=== PATIENT | male | born 1945 | race Caucasian/White ===

== ENCOUNTER 2017-11-20 23:14 | Observation (INO) | payer OTHER ==
[~2017-11-20] VITALS: Ht 177.8 cm; Wt 95.6 kg
[~2017-11-20 23:14] MED LIST: ATORVASTATIN CA20 MG PO; DULCOLAX5 MG PO; LISINOPRIL-HCT1 EACH PO; LOMOTIL TABLET1 EACH PO; LUPRON DEPOT45 MG IM; NAPROSYN375 MG PO; PRILOSEC20 MG PO
[2017-11-20 23:48] LABS: HEMATOCRIT 41.7 % (38.0-50.0); HEMOGLOBIN 14.4 G/DL (12.5-16.6); MCHC 34.5 G/DL (30.0-36.0); MCV 83.9 FL (86-99); PLATELET COUNT 238 K/uL (156-360); RBC DIS.WIDTH-CV 12.6 % (11.8-14.6); RBC DIS.WIDTH-SD 38.3 % (39-53); RED BLOOD COUNT 4.97 M/uL (4.00-5.50); WHITE BLOOD COUNT 10.1 K/uL (4.1-10.2)
[2017-11-21 00:11] LABS: TROP-I INTERPRETATION NEGATIVE; TROPONIN-I < 0.01 ng/mL (0.0-0.30)
[2017-11-21 00:24] LABS: CHLORIDE 99 mEq/L (99-109); POTASSIUM 3.7 mEq/L (3.7-5.4); SODIUM 135 mEq/L (136-147)
[2017-11-21 00:25] LABS: GLUCOSE 203 mg/dL (70-99)
[2017-11-21 00:29] LABS: CREATININE 1.1 mg/dL (0.6-1.3); GFR ESTIMATE (CALCULATED) > 59 mL/min/ (58.99-99999)
[2017-11-21 00:30] LABS: UREA NITROGEN (BUN) 17 mg/dL (9-23)
[2017-11-21] MEDS ORDERED: VITAMIN D32000 UNI1 PO (04:15)
[2017-11-21] MEDS ORDERED: GABAPENTIN100 MG PO (04:15)
[2017-11-21 05:32] VITALS: BP 147/72
[2017-11-21 07:02] LABS: TROP-I INTERPRETATION NEGATIVE; TROPONIN-I 0.15 ng/mL (0.0-0.30)
[2017-11-21 07:07] LABS: HDL CHOLESTEROL 33 MG/DL (Desirable>=40); LDL CHOLESTEROL 138 mg/dL (Desirable<100); NON-HDL CHOLESTEROL 169 mg/dL (Desirable<160); TOTAL CHOLESTEROL 202 mg/dL (Desirable<200); TRIGLYCERIDES 154 MG/DL (Normal: <150)
[2017-11-21 07:47] VITALS: BP 133/74
[2017-11-21 09:34] LABS: HEMOGLOBIN A1c (GLYCOHEMOGLOB) 6.9 % (Below 5.7)
[2017-11-21 13:20] LABS: TROP-I INTERPRETATION NEGATIVE
[2017-11-21 13:41] VITALS: BP 121/74
[2017-11-21 16:04] VITALS: BP 125/75
[2017-11-21 19:57] VITALS: BP 130/85
[2017-11-21 23:19] VITALS: BP 137/69
[2017-11-22 03:25] VITALS: BP 120/67
[2017-11-22 07:29] VITALS: BP 106/69
[2017-11-22 09:06] LABS: HEMATOCRIT 44.7 % (38.0-50.0); HEMOGLOBIN 14.5 G/DL (12.5-16.6); MCH 27.4 PG (29.0-34.0); MCHC 32.4 G/DL (30.0-36.0); MCV 84.3 FL (86-99); PLATELET COUNT 276 K/uL (156-360); RBC DIS.WIDTH-CV 12.7 % (11.8-14.6); RBC DIS.WIDTH-SD 38.9 % (39-53); WHITE BLOOD COUNT 9.8 K/uL (4.1-10.2)
[2017-11-22 09:28] LABS: CHLORIDE 97 MEQ/L (99-109); GFR ESTIMATE (CALCULATED) > 59 mL/min/ (58.99-99999); GLUCOSE 124 mg/dL (70-99); POTASSIUM 4.3 MEQ/L (3.7-5.4); SODIUM 136 MEQ/L (136-147); UREA NITROGEN (BUN) 17 mg/dL (9-23)
[2017-11-22] MEDS ORDERED: METOPROLOL SUCC25 MG PO (09:52)
[2017-11-22] MEDS ORDERED: ELIQUIS5 MG PO (09:53)
[2017-11-22] MEDS ORDERED: ASPIR 8181 M1 PO (09:53)
[2017-11-22] MEDS ORDERED: ONGLYZA2.5 MG PO (09:54)
[2017-11-22] MEDS ORDERED: ONGLYZA5 MG PO (09:54)
== END 2017-11-22 14:33 | disposition home or self-care (01) ==
LOC: EME 23:14 → EDOF 11-21 03:39 → ENRESERV 11-21 03:41 → 5SOUTH 11-21 05:17
PROVIDERS: Emergency Medicine; Hospitalist; Physician Assistant
PROC: B246ZZZ Ultrasonography of Right and Left Heart (ICD-10-PCS; principal; 2017-11-22)
DX: G50.0 Trigeminal neuralgia (principal); I10 Essential (primary) hypertension; E78.5 Hyperlipidemia, unspecified; E11.9 Type 2 diabetes mellitus without complications; J45.909 Unspecified asthma, uncomplicated; I65.23 Occlusion and stenosis of bilateral carotid arteries; Z85.46 Personal history of malignant neoplasm of prostate; Z86.73 Personal history of transient ischemic attack (TIA), and cerebral infarction without residual deficits; I48.91 Unspecified atrial fibrillation; I70.0 Atherosclerosis of aorta; I25.10 Atherosclerotic heart disease of native coronary artery without angina pectoris; I25.2 Old myocardial infarction; G89.29 Other chronic pain; K21.9 Gastro-esophageal reflux disease without esophagitis; Z87.891 Personal history of nicotine dependence
CPT/HCPCS: 70450; 70551; 71046; 80048; 80061; 83036; 84484; 85027; 85610; 85730; 93005; 93306; 93880; 99281; 99285; G0378; J1650

== ENCOUNTER 2017-11-29 12:02 | Observation (INO) | payer OTHER ==
[~2017-11-29] VITALS: Ht 177.8 cm; Wt 96.4 kg
[~2017-11-29 12:02] MED LIST changes: +ASPIR 8181 M1 PO; -ATORVASTATIN CA20 MG PO; +ATORVASTATIN CA80 MG PO; +ELIQUIS5 MG PO; +GABAPENTIN100 MG PO; +METOPROLOL SUCC25 MG PO; +ONGLYZA2.5 MG PO; +ONGLYZA5 MG PO; +VITAMIN D32000 UNI1 PO
[2017-11-29 12:21] LABS: BASOPHIL (%) 0.3 % (0-1); EOSINOPHIL (%) 1.2 % (0-5); EOSINOPHIL COUNT 0.1 K/uL (0-0.3); HEMATOCRIT 40.7 % (38.0-50.0); HEMOGLOBIN 14.1 G/DL (12.5-16.6); IMMATURE GRANULOCYTE (%) 0.5 % (0.0-0.7); LYMPHOCYTE (%) 13.1 % (15-42); LYMPHOCYTE COUNT 1.4 K/uL (1.0-2.8); MCH 28.7 PG (29.0-34.0); MCHC 34.6 G/DL (30.0-36.0); MCV 82.9 FL (86-99); MONOCYTE (%) 5.6 % (3-12); MONOCYTE COUNT 0.6 K/uL (0-0.8); NEUTROPHIL (%) 79.3 % (45-76); NEUTROPHIL COUNT 8.6 K/uL (1.8-6.4); PLATELET COUNT 208 K/uL (156-360); RBC DIS.WIDTH-CV 12.8 % (11.8-14.6); RBC DIS.WIDTH-SD 38.6 % (39-53); RED BLOOD COUNT 4.91 M/uL (4.00-5.50); WHITE BLOOD COUNT 10.9 K/uL (4.1-10.2)
[2017-11-29 12:26] LABS: INTER. NORMALIZED RATIO 1.2
[2017-11-29 12:29] LABS: PTT 31.6 SEC (25-37)
[2017-11-29 12:31] LABS: AMYLASE 60 IU/L (1-118); CHLORIDE 99 mEq/L (99-109)
[2017-11-29 12:32] LABS: POTASSIUM 3.5 mEq/L (3.7-5.4); SODIUM 134 mEq/L (136-147)
[2017-11-29 12:33] LABS: GLUCOSE 192 mg/dL (70-99)
[2017-11-29 12:36] LABS: SERUM ETHYL ALCOHOL < 10 mg/dL
[2017-11-29 12:37] LABS: CREATININE 0.9 mg/dL (0.6-1.3); GFR ESTIMATE (CALCULATED) > 59 mL/min/ (58.99-99999)
[2017-11-29 12:38] LABS: UREA NITROGEN (BUN) 17 mg/dL (9-23)
[2017-11-29 12:40] LABS: LIPASE 118 U/L (1.0-51.0)
[2017-11-29 12:41] LABS: TROP-I INTERPRETATION NEGATIVE; TROPONIN-I < 0.01 ng/mL (0.0-0.30)
[2017-11-29] MEDS ORDERED: TOPROL XL25 MG PO (15:44)
[2017-11-29] MEDS ORDERED: ADULT ASPIRIN R81 MG PO (15:45)
[2017-11-29] MEDS ORDERED: ONGLYZA5 MG PO (15:46)
[2017-11-29 16:40] LABS: APPEARANCE CLEAR ((CLEAR)); BILIRUBIN NEGATIVE; BLOOD NEGATIVE; COLOR STRAW ((YELLOW)); GLUCOSE (STRIP) NEGATIVE; KETONES NEGATIVE; LEUKOCYTES NEGATIVE; NITRITE NEGATIVE; PROTEIN (STRIP) NEGATIVE; SPECIFIC GRAVITY 1.026 (1.000-1.030); UCUL ADDED? NO
[2017-11-29 17:28] LABS: AMPHETAMINE NEGATIVE (500 ng/mL); BARBITURATES NEGATIVE (200 ng/mL); BENZODIAZEPINES NEGATIVE (150 ng/mL); BUPRENORPHINE NEGATIVE (10 ng/mL); COCAINE NEGATIVE (150 ng/mL); METHADONE NEGATIVE (200 ng/mL); METHAMPHETAMINE NEGATIVE (500 ng/mL); OPIATES (MORPHINE) NEGATIVE (100 ng/mL); OXYCODONE NEGATIVE (100 ng/mL); PHENCYCLIDINE NEGATIVE (25 ng/mL); PROPOXYPHENE NEGATIVE (300 ng/mL); THC CANNABINOIDS NEGATIVE (50 ng/mL); TRICYCLIC ANTIDEPRESSANTS NEGATIVE (300 ng/mL)
[2017-11-29 18:29] LABS: TROP-I INTERPRETATION NEGATIVE; TROPONIN-I 0.03 ng/mL (0.0-0.30)
[2017-11-29 21:17] VITALS: BP 140/69
[2017-11-30 01:17] LABS: TROP-I INTERPRETATION NEGATIVE; TROPONIN-I 0.02 ng/mL (0.0-0.30)
[2017-11-30 01:59] VITALS: BP 112/55
[2017-11-30 04:32] VITALS: BP 94/53
[2017-11-30 07:13] LABS: HEMATOCRIT 40.2 % (38.0-50.0); HEMOGLOBIN 13.4 G/DL (12.5-16.6); MCH 27.7 PG (29.0-34.0); MCHC 33.3 G/DL (30.0-36.0); MCV 83.2 FL (86-99); PLATELET COUNT 221 K/uL (156-360); RBC DIS.WIDTH-CV 12.9 % (11.8-14.6); RBC DIS.WIDTH-SD 39.1 % (39-53); RED BLOOD COUNT 4.83 M/uL (4.00-5.50); WHITE BLOOD COUNT 10.5 K/uL (4.1-10.2)
[2017-11-30 07:34] LABS: TROP-I INTERPRETATION NEGATIVE; TROPONIN-I < 0.01 ng/mL (0.0-0.30)
[2017-11-30 07:36] LABS: CHLORIDE 99 MEQ/L (99-109); CREATININE 0.9 MG/DL (0.6-1.3); GFR ESTIMATE (CALCULATED) > 59 mL/min/ (58.99-99999); GLUCOSE 144 mg/dL (70-99); POTASSIUM 4.1 MEQ/L (3.7-5.4); SODIUM 135 MEQ/L (136-147); UREA NITROGEN (BUN) 13 mg/dL (9-23)
[2017-11-30 07:50] VITALS: BP 128/67
[2017-11-30 12:32] VITALS: BP 131/68
[2017-11-30 16:20] VITALS: BP 137/86
== END 2017-11-30 17:58 | disposition home or self-care (01) ==
LOC: EME → EDBD 12:02 → EME 12:02 → ENRESERV 12:14 → CANRESERV 12:14 → EDOF 16:08 → 4SOUTH 16:08 → CANRESERV 17:14 → ENRESERV 17:14 → 4SOUTH 21:04
PROVIDERS: Emergency Medicine; Hospitalist; Physician Assistant
DX: R07.89 Other chest pain (principal); K30 Functional dyspepsia; I48.0 Paroxysmal atrial fibrillation; I35.0 Nonrheumatic aortic (valve) stenosis; Z87.891 Personal history of nicotine dependence; Z79.82 Long term (current) use of aspirin; Z79.01 Long term (current) use of anticoagulants; I10 Essential (primary) hypertension; E11.9 Type 2 diabetes mellitus without complications; K21.9 Gastro-esophageal reflux disease without esophagitis; Z85.46 Personal history of malignant neoplasm of prostate; J45.909 Unspecified asthma, uncomplicated; Z82.49 Family history of ischemic heart disease and other diseases of the circulatory system; Z79.4 Long term (current) use of insulin; E78.5 Hyperlipidemia, unspecified
CPT/HCPCS: 71045; 71275; 80048; 81003; 82150; 82948; 83690; 84484; 85025; 85027; 85610; 85730; 86850; 86900; 86901; 93005; 99281; 99285; G0378; G0480; J1815

== ENCOUNTER 2017-12-12 06:54 | Inpatient (IN) | payer OTHER ==
[~2017-12-12] VITALS: Ht 177.8 cm; Wt 92.0 kg
[~2017-12-12 06:54] MED LIST changes: +LO-DOSE ASPIRIN81 M2 PO; +TOPROL XL25 MG PO
[2017-12-12 07:35] LABS: HEMATOCRIT 36.8 % (38.0-50.0); MCH 28.6 PG (29.0-34.0); MCHC 35.3 G/DL (30.0-36.0); MCV 80.9 FL (86-99); PLATELET COUNT 239 K/uL (156-360); RBC DIS.WIDTH-CV 12.7 % (11.8-14.6); RED BLOOD COUNT 4.55 M/uL (4.00-5.50); WHITE BLOOD COUNT 11.6 K/uL (4.1-10.2)
[2017-12-12 08:03] LABS: TROP-I INTERPRETATION NEGATIVE; TROPONIN-I < 0.01 ng/mL (0.0-0.30)
[2017-12-12 08:07] LABS: CHLORIDE 92 MEQ/L (99-109); CREATININE 0.9 MG/DL (0.6-1.3); GFR ESTIMATE (CALCULATED) > 59 mL/min/ (58.99-99999); GLUCOSE 162 mg/dL (70-99); POTASSIUM 3.8 MEQ/L (3.7-5.4); SODIUM 128 MEQ/L (136-147); UREA NITROGEN (BUN) 15 mg/dL (9-23)
[2017-12-12] MEDS ORDERED: NAPROSYN375 MG PO (08:37)
[2017-12-12 10:14] VITALS: BP 143/72
[2017-12-12 13:04] LABS: TROP-I INTERPRETATION NEGATIVE; TROPONIN-I < 0.01 ng/mL (0.0-0.30)
[2017-12-12 16:33] VITALS: BP 130/65
[2017-12-12 19:29] VITALS: BP 114/58
[2017-12-12 20:04] LABS: TROP-I INTERPRETATION NEGATIVE; TROPONIN-I < 0.01 ng/mL (0.0-0.30)
[2017-12-12 20:40] LABS: APPEARANCE CLEAR ((CLEAR)); BILIRUBIN NEGATIVE; BLOOD NEGATIVE; COLOR YELLOW ((YELLOW)); GLUCOSE (STRIP) NEGATIVE; KETONES NEGATIVE; LEUKOCYTES NEGATIVE; NITRITE NEGATIVE; PROTEIN (STRIP) NEGATIVE; SPECIFIC GRAVITY 1.014 (1.000-1.030); UCUL ADDED? NO
[2017-12-13 00:13] VITALS: BP 101/64
[2017-12-13 03:57] VITALS: BP 141/72
[2017-12-13 05:28] LABS: HEMATOCRIT 36.2 % (38.0-50.0); HEMOGLOBIN 12.2 G/DL (12.5-16.6); MCH 27.9 PG (29.0-34.0); MCHC 33.7 G/DL (30.0-36.0); MCV 82.6 FL (86-99); PLATELET COUNT 227 K/uL (156-360); RBC DIS.WIDTH-CV 12.8 % (11.8-14.6); RBC DIS.WIDTH-SD 38.6 % (39-53); RED BLOOD COUNT 4.38 M/uL (4.00-5.50); WHITE BLOOD COUNT 10.2 K/uL (4.1-10.2)
[2017-12-13 06:51] LABS: CHLORIDE 100 MEQ/L (99-109); GFR ESTIMATE (CALCULATED) > 59 mL/min/ (58.99-99999); GLUCOSE 128 mg/dL (70-99); POTASSIUM 3.5 MEQ/L (3.7-5.4); SODIUM 134 MEQ/L (136-147); UREA NITROGEN (BUN) 15 mg/dL (9-23)
[2017-12-13 07:32] VITALS: BP 137/68
[2017-12-13 19:25] VITALS: BP 154/77
[2017-12-13 21:34] LABS: BASOPHIL (%) 0.3 % (0-1); EOSINOPHIL (%) 1.6 % (0-5); EOSINOPHIL COUNT 0.2 K/uL (0-0.3); HEMATOCRIT 33.5 % (38.0-50.0); HEMOGLOBIN 11.6 G/DL (12.5-16.6); IMMATURE GRANULOCYTE (%) 0.3 % (0.0-0.7); LYMPHOCYTE (%) 11.9 % (15-42); LYMPHOCYTE COUNT 1.1 K/uL (1.0-2.8); MCH 28.1 PG (29.0-34.0); MCHC 34.6 G/DL (30.0-36.0); MCV 81.1 FL (86-99); MONOCYTE (%) 7.9 % (3-12); MONOCYTE COUNT 0.8 K/uL (0-0.8); NEUTROPHIL COUNT 7.5 K/uL (1.8-6.4); PLATELET COUNT 223 K/uL (156-360); RBC DIS.WIDTH-CV 12.5 % (11.8-14.6); RBC DIS.WIDTH-SD 37.2 % (39-53); RED BLOOD COUNT 4.13 M/uL (4.00-5.50); WHITE BLOOD COUNT 9.6 K/uL (4.1-10.2)
[2017-12-13 21:46] LABS: INTER. NORMALIZED RATIO 1.2
[2017-12-13 21:49] LABS: PTT 28.5 SEC (25-37)
[2017-12-13 23:46] VITALS: BP 116/66
[2017-12-14 04:35] VITALS: BP 137/71
[2017-12-14 05:48] LABS: HEMOGLOBIN 11.7 G/DL (12.5-16.6); MCH 28.3 PG (29.0-34.0); MCHC 34.4 G/DL (30.0-36.0); MCV 82.1 FL (86-99); PLATELET COUNT 234 K/uL (156-360); RBC DIS.WIDTH-CV 12.7 % (11.8-14.6); RBC DIS.WIDTH-SD 38.5 % (39-53); RED BLOOD COUNT 4.14 M/uL (4.00-5.50); WHITE BLOOD COUNT 7.9 K/uL (4.1-10.2)
[2017-12-14 07:32] VITALS: BP 145/75
[2017-12-14 10:56] LABS: CHLORIDE 103 MEQ/L (99-109); CREATININE 0.8 MG/DL (0.6-1.3); GFR ESTIMATE (CALCULATED) > 59 mL/min/ (58.99-99999); GLUCOSE 124 mg/dL (70-99); POTASSIUM 4.1 MEQ/L (3.7-5.4); SODIUM 136 MEQ/L (136-147); UREA NITROGEN (BUN) 10 mg/dL (9-23)
== END 2017-12-14 11:03 | disposition short-term general hospital (02) | DRG 287 ==
LOC: EME 06:54 → EDOF 08:19 → 4SOUTH 08:19 → ENRESERV 08:20 → 4SOUTH 10:06
PROVIDERS: Hospitalist; Internal Medicine Cardiovascular Disease; Nurse Practitioner Family; Orthopaedic Surgery; Physician Assistant Medical
DX: I25.10 Atherosclerotic heart disease of native coronary artery without angina pectoris (principal); I25.82 Chronic total occlusion of coronary artery; E87.0 Hyperosmolality and hypernatremia; I10 Essential (primary) hypertension; I95.9 Hypotension, unspecified; E78.5 Hyperlipidemia, unspecified; E11.9 Type 2 diabetes mellitus without complications; K21.9 Gastro-esophageal reflux disease without esophagitis; J45.909 Unspecified asthma, uncomplicated; I48.0 Paroxysmal atrial fibrillation; K44.9 Diaphragmatic hernia without obstruction or gangrene; I35.0 Nonrheumatic aortic (valve) stenosis; E66.9 Obesity, unspecified; Z79.82 Long term (current) use of aspirin; Z87.891 Personal history of nicotine dependence; Z85.46 Personal history of malignant neoplasm of prostate; Z79.01 Long term (current) use of anticoagulants; Z68.29 Body mass index [BMI] 29.0-29.9, adult
CPT/HCPCS: 71046; 80048; 81003; 82948; 84484; 85025; 85027; 85610; 85730; 93005; 99281; 99284; C1769; C1887; G0378; J1644; J2250; J3010; J7030; S0028